=== PATIENT | female | born 1940 | race African-American/Black ===

== ENCOUNTER 2020-10-31 09:16 | Day surgery (SDC) | payer OTHER ==
[2020-10-26 13:39] VITALS: BMI 32.8
[2020-10-31 14:24] VITALS: BP 127/59; PULSE 53; TEMP 96.9
== END 2020-10-31 11:30 | disposition home or self-care (01) ==
LOC: FASU-ENDO 09:16
PROVIDERS: ATTEND Internal Medicine Gastroenterology
PROC: 0DJD8ZZ Inspection of Lower Intestinal Tract, Via Natural or Artificial Opening Endoscopic (ICD-10-PCS; principal; 2020-10-31 10:22)
DX: Z86.010 Personal history of colon polyps (principal); K64.1 Second degree hemorrhoids
CPT/HCPCS: 82962